=== PATIENT | female | born 1990 | race African-American/Black ===

== ENCOUNTER 2018-10-12 00:34 | Emergency (ER) | payer OTHER ==
[~2018-10-12] VITALS: Ht 162.6 cm; Wt 82.1 kg
[~2018-10-12 00:34] MED LIST: APAP/CODEINE ELI5 M1 PO; DEPO-PROVER150 MG/M1; IBUPROFEN 800800 M1 PO; KEFLEX500 MG PO; MONISTAT 745 GM VG; NORCO 5-325 TA1 EACH PO
[2018-10-12 01:30] LABS: ABSOLUTE NEUTROPHILS 6.7 thou/uL (1.4-8.2); BASOPHILS 0.8 % (0.0-2.0); EOSINOPHILS 0.5 % (0.0-3.0); HEMATOCRIT 38.3 % (37.0-47.0); HEMOGLOBIN 12.7 gm/dL (12.0-15.0); LYMPHOCYTES 21.5 % (24.0-44.0); MCH 27.2 pg (26.0-34.0); MCHC 33.1 g/dL (28.0-37.0); MCV 82.3 fL (80.0-100.0); MONOCYTES 9.8 % (1.0-8.0); PLATELET COUNT 247 thou/uL (150-400); POLYS 67.4 % (36.0-66.0); RBC 4.65 mil/uL (4.20-5.00); RDW 12.6 % (10.5-14.5)
[2018-10-12 01:39] LABS: MONOTEST (MONOSPOT)* NEGATIVE (Negative)
[2018-10-12 01:42] LABS: CALCIUM 8.9 mg/dL (8.5-10.1); CREATININE 1.1 mg/dL (0.6-1.0); POTASSIUM 3.5 mmol/L (3.5-5.1)
[2018-10-12] MEDS ORDERED: CEPACOL SORETH1 EAC1 PO (02:13)
[2018-10-12] MEDS ORDERED: MEDROLDOSEPACK PO (02:13)
[2018-10-12 02:19] VITALS: BP 105/62
== END 2018-10-12 02:25 | disposition home or self-care (01) ==
LOC: ER 00:34
PROVIDERS: Student in an Organized Health Care Education/Training Program
DX: J02.9 Acute pharyngitis, unspecified (principal); F17.210 Nicotine dependence, cigarettes, uncomplicated